=== PATIENT | female | born 1970 | race Two or more races ===

== ENCOUNTER 2020-12-20 01:55 | Inpatient (IN) | payer MEDICAID, OTHER ==
[~2020-12-20] VITALS: Ht 157.5 cm; Wt 123.6 kg
[2020-12-20 03:19] LABS: Urine Bacteria FEW /hpf (None Seen); Urine Blood 3+ /uL (Negative); Urine Mucus FEW (None Seen); Urine Specific Gravity 1.015 (1.001-1.035); Urine WBC 32 /hpf (0 - 5)
[2020-12-20] MEDS ORDERED: ONDANSETRON HCL 4 MG/2 ML VIAL IV ONE ×2 (05:30→10:15)
[2020-12-20] MEDS ORDERED: KETOROLAC TROMETH 30 MG/ML 1ML VIAL IV ONE (05:30)
[2020-12-20] MEDS ORDERED: SODIUM CHLORIDE 0.9% 1,000 ML IV ONE ×2 (05:30→12:45)
[2020-12-20 09:30] LABS: Basophils # (auto) 0 10 ^3/uL (0-0.2); Eosinophils # (auto) 0 10 ^3/uL (0-0.8); Eosinophils % (auto) 0.3 % (0.0-7.0); Lymphocytes # (auto) 1.5 10 ^3/uL (0.4-5.4); Mean Corpuscular Hgb Conc. 30.5 g/dL (32.0-36.0); Monocytes # (auto) 0.5 10 ^3/uL (0-1.3); Red Cell Distribution Width 17.2 % (11.8-14.3)
[2020-12-20 09:33] LABS: Basophils % (auto) 0.5 % (0.0-2.0); Hematocrit 26.3 % (36.0-46.0); Lymphocytes % (auto) 21.2 % (10.0-50.0); Mean Corpuscular Hemoglobin 19.5 pg (28.0-32.0); Mean Corpuscular Volume 63.8 fL (80.0-100.0); Monocytes % (auto) 6.9 % (0.0-12.0); Neutrophils % (auto) 71.1 % (37.0-80.0); Platelet Count (auto) 257 10^3/uL (140-450); Red Blood Cells 4.12 10^6/uL (4.0-5.20)
[2020-12-20 09:49] LABS: Calcium 8.4 mg/dL (8.5-10.1); Potassium 3.9 mmol/L (3.5-5.1)
[2020-12-20] MEDS ORDERED: MORPHINE SULFATE 4 MG/ML SYR/VIAL IV ONE (10:15)
[2020-12-20] MEDS ORDERED: cefTRIAXone 1GM/50ML D5W 50 ML IV ONE (10:45)
[2020-12-20] MEDS ORDERED: cloNIDine HCL 0.1 MG TAB PO ONE (11:15)
[2020-12-20] MEDS ORDERED: FERROUS SULFATE 325mg EC TAB PO ONE (11:30)
[2020-12-20] MEDS ORDERED: ACETAMINOPHEN 500 MG TAB PO PRN (12:15)
[2020-12-20] MEDS ORDERED: MORPHINE SULF INJ 2 MG/ML SYRINGE 1ML IV PRN (12:15)
[2020-12-20] MEDS ORDERED: ONDANSETRON HCL 4 MG/2 ML VIAL IV PRN (12:15)
[2020-12-20] MEDS ORDERED: HYDROcodone-ACET 5/325MG TAB PO PRN (12:15)
[2020-12-20] MEDS ORDERED: NITROGLYCERIN 0.4 MG SL TAB SL PRN (12:15)
[2020-12-20] MEDS ORDERED: SODIUM FERR GLUC 62.5MG/5ML 125 MG in SODIUM CHL 0.9% 100 ML IV ONE (12:15)
[2020-12-20] MEDS: SODIUM CHLORIDE 0.9% 1,000 ML IV SCH ×2 (12:40→22:20)
[2020-12-20] MEDS ORDERED: PHENAZOPYRIDINE HCL 100 MG TAB PO ONE (12:45)
[2020-12-20 15:40] VITALS: BP 127/73
[2020-12-20 17:26] VITALS: BP 127/73
[2020-12-20] MEDS: MORPHINE SULF INJ 2 MG/ML SYRINGE 1ML IV PRN (17:53)
[2020-12-20] MEDS ORDERED: LISI-646 PO (18:02)
[2020-12-20 21:36] VITALS: BP 145/76
[2020-12-21] MEDS: SODIUM CHLORIDE 0.9% 1,000 ML IV SCH ×4 (04:15→23:12)
[2020-12-21 05:51] VITALS: BP 146/83
[2020-12-21 07:19] LABS: Basophils # (auto) 0 10 ^3/uL (0-0.2); Eosinophils # (auto) 0.1 10 ^3/uL (0-0.8); Lymphocytes # (auto) 1.5 10 ^3/uL (0.4-5.4); Monocytes # (auto) 0.3 10 ^3/uL (0-1.3); Neutrophils # (auto) 2.8 10 ^3/uL (1.6-8.6)
[2020-12-21 07:22] LABS: Basophils % (auto) 0.5 % (0.0-2.0); Eosinophils % (auto) 2.2 % (0.0-7.0); Hematocrit 25.6 % (36.0-46.0); Hemoglobin 7.8 g/dL (12.2-16.2); Lymphocytes % (auto) 32.1 % (10.0-50.0); Mean Corpuscular Hemoglobin 19.5 pg (28.0-32.0); Mean Corpuscular Hgb Conc. 30.6 g/dL (32.0-36.0); Mean Corpuscular Volume 63.8 fL (80.0-100.0); Monocytes % (auto) 6.7 % (0.0-12.0); Neutrophils % (auto) 58.5 % (37.0-80.0); Nucleated Red Blood Cells % 0.4 %; Platelet Count (auto) 249 10^3/uL (140-450); Red Blood Cells 4.01 10^6/uL (4.0-5.20); Red Cell Distribution Width 17.3 % (11.8-14.3); White Blood Cell 4.8 10^3/uL (4.4-10.8)
[2020-12-21 07:41] LABS: Potassium 3.9 mmol/L (3.5-5.1)
[2020-12-21 07:48] LABS: Calcium 7.9 mg/dL (8.5-10.1)
[2020-12-21 08:00] VITALS: BP 154/76
[2020-12-21 09:00] VITALS: BP 154/76
[2020-12-21] MEDS: cefTRIAXone 1GM/50ML D5W 50 ML IV SCH (09:21)
[2020-12-21] MEDS: FAMOTIDINE 20 MG TAB PO SCH (09:21)
[2020-12-21] MEDS: LISINOPRIL 10 MG TAB PO SCH (09:22)
[2020-12-21 12:53] VITALS: BP 143/59
[2020-12-21 16:55] VITALS: BP 165/87
[2020-12-21 22:00] VITALS: BP 164/90
[2020-12-22] MEDS: MORPHINE SULF INJ 2 MG/ML SYRINGE 1ML IV PRN (02:32)
[2020-12-22 05:00] VITALS: BP 163/88
[2020-12-22 06:17] LABS: Basophils # (auto) 0 10 ^3/uL (0-0.2); Eosinophils # (auto) 0.1 10 ^3/uL (0-0.8); Hemoglobin 7.8 g/dL (12.2-16.2); Monocytes # (auto) 0.3 10 ^3/uL (0-1.3); White Blood Cell 7.5 10^3/uL (4.4-10.8)
[2020-12-22 06:24] LABS: Basophils % (auto) 0.4 % (0.0-2.0); Hematocrit 25.4 % (36.0-46.0); Lymphocytes # (auto) 1.1 10 ^3/uL (0.4-5.4); Lymphocytes % (auto) 14.2 % (10.0-50.0); Mean Corpuscular Hemoglobin 19.9 pg (28.0-32.0); Mean Corpuscular Hgb Conc. 30.7 g/dL (32.0-36.0); Mean Corpuscular Volume 64.8 fL (80.0-100.0); Monocytes % (auto) 4.5 % (0.0-12.0); Neutrophils % (auto) 79.9 % (37.0-80.0); Platelet Count (auto) 241 10^3/uL (140-450); Red Blood Cells 3.92 10^6/uL (4.0-5.20)
[2020-12-22 08:00] VITALS: BP 161/82
[2020-12-22 08:46] VITALS: BP 161/82
[2020-12-22] MEDS: cefTRIAXone 1GM/50ML D5W 50 ML IV SCH (09:59)
[2020-12-22] MEDS: FAMOTIDINE 20 MG TAB PO SCH (09:59)
[2020-12-22] MEDS: LISINOPRIL 10 MG TAB PO SCH (10:00)
[2020-12-22] MEDS: SODIUM CHLORIDE 0.9% 1,000 ML IV SCH (12:15)
[2020-12-22 12:31] VITALS: BP 159/90
== END 2020-12-22 16:10 | disposition home or self-care (01) | DRG 463 ==
LOC: ER 01:56 → TELE 12:13 → CENTRAL 15:40
PROVIDERS: ADMIT Nurse Practitioner Acute Care; ATTEND Family Medicine
DX: N30.01 Acute cystitis with hematuria (principal); E66.01 Morbid (severe) obesity due to excess calories; Z68.42 Body mass index [BMI] 45.0-49.9, adult; D25.9 Leiomyoma of uterus, unspecified; D50.9 Iron deficiency anemia, unspecified; I10 Essential (primary) hypertension; K43.9 Ventral hernia without obstruction or gangrene; N92.0 Excessive and frequent menstruation with regular cycle; Z20.822 Contact with and (suspected) exposure to COVID-19
CPT/HCPCS: 36415; 74176; 76830; 76856; 80048; 81001; 81025; 83605; 84443; 85025; 87086; 87426; 96361; 96365; 96375; G0378; J0696; J1885; J2405

== ENCOUNTER 2022-07-10 10:46 | Inpatient (IN) | payer MEDICAID ==
[~2022-07-10] VITALS: Ht 162.6 cm; Wt 115.5 kg
[~2022-07-10 10:46] MED LIST: LISI20TA28 PO
[2022-07-10 11:31] LABS: Basophils # (auto) 0 10 ^3/uL (0-0.2); Eosinophils # (auto) 0 10 ^3/uL (0-0.8); Lymphocytes # (auto) 1.8 10 ^3/uL (0.4-5.4)
[2022-07-10] MEDS ORDERED: dilTIAZem 25 MG/5 ML VIAL IV ONE ×2 (11:31→11:45)
[2022-07-10 11:33] LABS: Basophils % (auto) 0.4 % (0.0-2.0); Eosinophils % (auto) 0.2 % (0.0-7.0); Hematocrit 36.4 % (36.0-46.0); Hemoglobin 11.5 g/dL (12.2-16.2); Lymphocytes % (auto) 16.8 % (10.0-50.0); Mean Corpuscular Hgb Conc. 31.5 g/dL (32.0-36.0); Mean Corpuscular Volume 63.6 fL (80.0-100.0); Monocytes # (auto) 0.2 10 ^3/uL (0-1.3); Monocytes % (auto) 2.1 % (0.0-12.0); Neutrophils # (auto) 8.7 10 ^3/uL (1.6-8.6); Neutrophils % (auto) 80.5 % (37.0-80.0); Red Blood Cells 5.73 10^6/uL (4.0-5.20); White Blood Cell 10.8 10^3/uL (4.4-10.8)
[2022-07-10 11:35] LABS: Red Cell Distribution Width 22.6 % (11.8-14.3)
[2022-07-10] MEDS ORDERED: LORazepam 2MG/ML-1ML VIAL IV ONE (12:00)
[2022-07-10] MEDS ORDERED: dilTIAZem 125mg/125ml BAG KIT 125 ML IV ONE (12:00)
[2022-07-10 12:03] LABS: Albumin 3.8 g/dL (3.4-5.0); BUN/Creatinine Ratio 17.3; Calcium 9.7 mg/dL (8.5-10.1); Potassium 4.2 mmol/L (3.5-5.1)
[2022-07-10 12:06] LABS: Bilirubin, Total 0.4 mg/dL (0.2-1.0); Total Protein 7.7 g/dL (6.4-8.2)
[2022-07-10] MEDS ORDERED: DIGOXIN (250MCG/ML) 2 ML AMPULE ONE (12:50)
[2022-07-10] MEDS ORDERED: DIGOXIN 0.25 MG TAB PO ONE (13:00)
[2022-07-10] MEDS ORDERED: DIGOXIN (250MCG/ML) 2 ML AMPULE IV ONE (13:15)
[2022-07-10] MEDS ORDERED: SODIUM CHLORIDE 0.9% 1,000 ML IV ONE (13:15)
[2022-07-10] MEDS ORDERED: MORPHINE SULFATE INJ 2 MG/ml SYRG IV PRN ×2 (14:00)
[2022-07-10] MEDS ORDERED: HYDROcodone-ACET 5/325MG TAB PO PRN (14:00)
[2022-07-10] MEDS ORDERED: NITROGLYCERIN 0.4 MG SL TAB SL PRN (14:00)
[2022-07-10] MEDS ORDERED: AMIODARONE HCL 150 MG in D5W 5% 100 ML IV ONE (14:15)
[2022-07-10] MEDS ORDERED: METOPROLOL TARTRATE 1MG/1ML-5ML VIAL IV ONE (14:15)
[2022-07-10] MEDS ORDERED: MAGNESIUM SULFATE 1GM/100ML 100 ML IV ONE (14:15)
[2022-07-10] MEDS ORDERED: DEXTROSE (50%) 50ML SYRG IV PRN (14:30)
[2022-07-10] MEDS ORDERED: AMIODARONE 450mg/250ml AE 250 ML IV SCH (14:30)
[2022-07-10] MEDS ORDERED: ENOXAPARIN SOD 100 MG/1 ML SYRINGE SC ONE (15:00)
[2022-07-10 15:10] LABS: Cholesterol 165 mg/dL (< 200); HDL Cholesterol 39 mg/dL (40-59); LDL Cholesterol 107 mg/dL (< 100); Triglycerides 295 mg/dL (< 150)
[2022-07-10] MEDS: InsuLIN REG 1unit/0.01ml Soln (100units/ml) SC SCH ×2 (17:00→22:30)
[2022-07-10] MEDS: ACCU-CHEK COMFORT CURVE STRIP VI SCH ×2 (17:00→22:22)
[2022-07-10] MEDS ORDERED: dilTIAZem 120MG ER CAP PO ONE (18:30)
[2022-07-10 18:32] LABS: Urine Bacteria NONE SEEN /hpf (None Seen); Urine Blood Negative /uL (Negative); Urine Hyaline Cast FEW /lpf (0 - 2); Urine Specific Gravity 1.005 (1.001-1.035); Urine WBC <1 /hpf (0 - 5)
[2022-07-10 18:47] LABS: Alcohol, Urine < 3.0 mg/dL (0-10); Amphetamine Screen, Urine NEGATIVE (NEGATIVE); Barbiturate Scree,Urine NEGATIVE (NEGATIVE); Benzodiazephine Screen, Urine NEGATIVE (NEGATIVE); Cannabinoid Screen, Urine NEGATIVE (NEGATIVE); Cocaine Screen, Urine NEGATIVE (NEGATIVE); Opiate Scree,Urine NEGATIVE (NEGATIVE); Phencyclidine Screen, Urine NEGATIVE (NEGATIVE)
[2022-07-10] MEDS: ACETAMINOPHEN 325 MG TAB PO PRN (20:22)
[2022-07-10] MEDS: AMIODARONE 450mg/250ml AE 250 ML IV SCH (20:33)
[2022-07-10] MEDS: ENOXAPARIN SOD 100 MG/1 ML SYRINGE SC SCH (22:31)
[2022-07-11 06:19] LABS: Basophils # (auto) 0 10 ^3/uL (0-0.2); Basophils % (auto) 0.4 % (0.0-2.0); Eosinophils # (auto) 0.1 10 ^3/uL (0-0.8); Eosinophils % (auto) 1.7 % (0.0-7.0); Hematocrit 32.8 % (36.0-46.0); Lymphocytes # (auto) 1.9 10 ^3/uL (0.4-5.4); Lymphocytes % (auto) 26.9 % (10.0-50.0); Mean Corpuscular Hemoglobin 19.7 pg (28.0-32.0); Mean Corpuscular Hgb Conc. 30.5 g/dL (32.0-36.0); Mean Corpuscular Volume 64.5 fL (80.0-100.0); Monocytes # (auto) 0.4 10 ^3/uL (0-1.3); Neutrophils # (auto) 4.7 10 ^3/uL (1.6-8.6); Nucleated Red Blood Cells % 0.1 %; Red Blood Cells 5.08 10^6/uL (4.0-5.20); White Blood Cell 7.1 10^3/uL (4.4-10.8)
[2022-07-11 06:21] LABS: Red Cell Distribution Width 23.4 % (11.8-14.3)
[2022-07-11 07:18] LABS: Albumin 3.1 g/dL (3.4-5.0); BUN/Creatinine Ratio 19.3; Bilirubin, Total 0.4 mg/dL (0.2-1.0); Calcium 8.7 mg/dL (8.5-10.1); Potassium 3.7 mmol/L (3.5-5.1); Total Protein 6.7 g/dL (6.4-8.2)
[2022-07-11] MEDS: ACCU-CHEK COMFORT CURVE STRIP VI SCH ×4 (07:26→21:51)
[2022-07-11] MEDS: InsuLIN REG 1unit/0.01ml Soln (100units/ml) SC SCH ×4 (07:30→21:53)
[2022-07-11] MEDS ORDERED: DIGOXIN 0.125 MG TAB PO SCH (10:00)
[2022-07-11] MEDS: dilTIAZem 120MG ER CAP PO SCH (10:37)
[2022-07-11] MEDS: ENOXAPARIN SOD 100 MG/1 ML SYRINGE SC SCH (10:37)
[2022-07-11] MEDS: AMIODARONE 450mg/250ml AE 250 ML IV SCH ×2 (11:30→13:44)
[2022-07-11 22:00] VITALS: BP 153/69
[2022-07-11] MEDS ORDERED: ENOXAPARIN SOD 120 MG/0.8 ML SYRINGE SC SCH (22:00)
[2022-07-12] MEDS: AMIODARONE 450mg/250ml AE 250 ML IV SCH (03:04)
[2022-07-12 05:00] VITALS: BP 159/84
[2022-07-12] MEDS: InsuLIN REG 1unit/0.01ml Soln (100units/ml) SC SCH ×4 (06:28→21:04)
[2022-07-12] MEDS: ACCU-CHEK COMFORT CURVE STRIP VI SCH ×4 (06:32→21:04)
[2022-07-12 06:45] LABS: Basophils # (auto) 0 10 ^3/uL (0-0.2); Eosinophils # (auto) 0.1 10 ^3/uL (0-0.8); Eosinophils % (auto) 1.4 % (0.0-7.0)
[2022-07-12 06:48] LABS: Basophils % (auto) 0.3 % (0.0-2.0); Hemoglobin 9.5 g/dL (12.2-16.2); Lymphocytes % (auto) 23.6 % (10.0-50.0); Mean Corpuscular Hemoglobin 19.9 pg (28.0-32.0); Mean Corpuscular Hgb Conc. 30.6 g/dL (32.0-36.0); Monocytes # (auto) 0.3 10 ^3/uL (0-1.3); Monocytes % (auto) 4.1 % (0.0-12.0); Neutrophils % (auto) 70.6 % (37.0-80.0); Nucleated Red Blood Cells % 0.1 %; Red Blood Cells 4.77 10^6/uL (4.0-5.20); White Blood Cell 8.4 10^3/uL (4.4-10.8)
[2022-07-12 06:57] LABS: Red Cell Distribution Width 23.6 % (11.8-14.3)
[2022-07-12 07:34] LABS: BUN/Creatinine Ratio 20.3; Potassium 3.9 mmol/L (3.5-5.1)
[2022-07-12 08:00] VITALS: BP 153/83
[2022-07-12 09:00] VITALS: BP 153/83
[2022-07-12] MEDS: LISINOPRIL 20 MG TAB PO SCH (10:15)
[2022-07-12] MEDS: AMIODARONE HCL 200 MG TAB PO SCH ×2 (10:15→21:00)
[2022-07-12] MEDS: dilTIAZem 120MG ER CAP PO SCH (10:16)
[2022-07-12] MEDS: APIXABAN 5 MG TAB PO SCH ×2 (10:17→21:00)
[2022-07-12] MEDS: hydrALAZINE HCL 20 MG/ML VL IV PRN ×2 (12:32→21:01)
[2022-07-12 13:00] VITALS: BP 170/76
[2022-07-12 17:00] VITALS: BP 163/81
[2022-07-12 22:00] VITALS: BP 160/79
[2022-07-13 05:00] VITALS: BP 154/79
[2022-07-13 05:35] LABS: Basophils # (auto) 0 10 ^3/uL (0-0.2); Basophils % (auto) 0.4 % (0.0-2.0); Eosinophils # (auto) 0.1 10 ^3/uL (0-0.8); Hemoglobin 10.7 g/dL (12.2-16.2); Lymphocytes # (auto) 1.9 10 ^3/uL (0.4-5.4)
[2022-07-13 05:37] LABS: Hematocrit 34.9 % (36.0-46.0); Lymphocytes % (auto) 23.2 % (10.0-50.0); Mean Corpuscular Hgb Conc. 30.7 g/dL (32.0-36.0); Monocytes # (auto) 0.4 10 ^3/uL (0-1.3); Monocytes % (auto) 4.6 % (0.0-12.0); Neutrophils # (auto) 5.9 10 ^3/uL (1.6-8.6); Neutrophils % (auto) 70.8 % (37.0-80.0); Red Blood Cells 5.37 10^6/uL (4.0-5.20); White Blood Cell 8.4 10^3/uL (4.4-10.8)
[2022-07-13 05:42] LABS: BUN/Creatinine Ratio 17.2; Calcium 9.5 mg/dL (8.5-10.1)
[2022-07-13] MEDS: InsuLIN REG 1unit/0.01ml Soln (100units/ml) SC SCH ×2 (06:35→11:30)
[2022-07-13] MEDS: ACCU-CHEK COMFORT CURVE STRIP VI SCH ×2 (06:37→11:30)
[2022-07-13] MEDS: hydrALAZINE HCL 20 MG/ML VL IV PRN (06:38)
[2022-07-13 06:46] LABS: Red Cell Distribution Width 23.4 % (11.8-14.3)
[2022-07-13 09:00] VITALS: BP 125/77
[2022-07-13] MEDS: AMIODARONE HCL 200 MG TAB PO SCH (09:17)
[2022-07-13] MEDS: LISINOPRIL 20 MG TAB PO SCH (09:18)
[2022-07-13] MEDS: APIXABAN 5 MG TAB PO SCH (09:18)
[2022-07-13] MEDS: ACETAMINOPHEN 325 MG TAB PO PRN (09:25)
[2022-07-13] MEDS ORDERED: AMIO200T33 PO (09:35)
[2022-07-13] MEDS ORDERED: METO-6 PO (09:36)
[2022-07-13] MEDS ORDERED: LISI20TA28 PO (09:36)
[2022-07-13] MEDS ORDERED: APIX5TAB PO (09:36)
[2022-07-13] MEDS ORDERED: METOPROLOL SUCCINATE XL 50 MG TAB PO SCH (10:00)
[2022-07-13 10:23] VITALS: BP 125/77
== END 2022-07-13 11:20 | disposition home or self-care (01) | DRG 201 ==
LOC: ER 10:46 → TELE 14:40 → TELE-CENTR 07-11 18:21
PROVIDERS: ADMIT Registered Nurse; ATTEND Internal Medicine Pulmonary Disease
DX: I48.91 Unspecified atrial fibrillation (principal); I95.9 Hypotension, unspecified; E11.65 Type 2 diabetes mellitus with hyperglycemia; I10 Essential (primary) hypertension; E66.01 Morbid (severe) obesity due to excess calories; Z20.822 Contact with and (suspected) exposure to COVID-19; E83.42 Hypomagnesemia; Z79.84 Long term (current) use of oral hypoglycemic drugs; Z82.49 Family history of ischemic heart disease and other diseases of the circulatory system; Z83.3 Family history of diabetes mellitus; Z68.41 Body mass index [BMI] 40.0-44.9, adult
CPT/HCPCS: 36415; 71045; 80048; 80053; 80061; 80162; 80307; 81001; 82962; 83036; 83735; 83880; 84443; 84484; 85025; 87426; 93005; 93306; 96365; 96375; 99291; G0378; J1815; J7060

== ENCOUNTER 2022-08-28 06:43 | Emergency (ER) | payer MEDICAID ==
[~2022-08-28] VITALS: Ht 162.6 cm; Wt 102.3 kg
[~2022-08-28 06:43] MED LIST changes: +AMIO200T33 PO; +APIX5TAB PO; +METO-6 PO
[2022-08-28 07:27] VITALS: BP 155/80
[2022-08-28] MEDS ORDERED: CLON0.2T PO (07:52)
== END 2022-08-28 07:53 | disposition home or self-care (01) ==
LOC: ER 06:43
DX: I10 Essential (primary) hypertension (principal)